=== PATIENT | male | born 1975 | race Caucasian/White ===

== ENCOUNTER 2019-10-28 10:36 | Emergency (ER) | payer MEDICAID ==
[2019-10-28] MEDS ORDERED: Acetaminophen/oxyCODONE 325-5 MG Tab PO ONE (11:23)
[2019-10-28] MEDS ORDERED: Ibuprofen 400 MG Tab PO ONE (11:23)
[2019-10-28] MEDS ORDERED: Lidocaine 5% 700 MG Patch TOP ONE (11:23)
--- NOTE | 2019-10-28 11:27 | EDM.PDOC ---
ED HPI GENERAL MEDICAL PROBLEM - General Chief Complaint: Back Pain or Injury Stated Complaint: PAIN ON SIDE/BACK Time Seen by Provider: 10/28/19 10:38 Source of Information: Reports: Patient History Limitations: Reports: No Limitations - History of Present Illness INITIAL COMMENTS - FREE TEXT/NARRATIVE: 44-year-old male with a past medical history of anxiety presenting with chest wall pain. 6 days ago, the patient was crawling through a drainage pipe when he stood up and struck the left side of his thorax against an approximately 2 inch wide metal pipe. Since then he has had persistent pain to the left lateral chest wall and noted a contusion to the same area. His left-sided chest pain worsens with movement and with deep breathing. He denies any hematuria, nausea, vomiting, chest discomfort, or shortness of breath. Intermittently taking ibuprofen at home without much relief. No other complaints or injuries. No anticoagulation. left lower back/side Pain Score (Numeric/FACES): 9 - Related Data Allergies Allergy/AdvReac Type Severity Reaction Status Date / Time No Known Allergies Allergy Verified 10/28/19 10:58 Home Meds: Home Meds ClonazePAM [KlonoPIN] mg PO ASDIRECTED 10/28/19 [History] Escitalopram [Lexapro] 20 mg PO DAILY 10/28/19 [History] Past Medical History Psychiatric History: Reports: Anxiety - Infectious Disease History Infectious Disease History: Reports: Chicken Pox Social & Family History - Family History Family Medical History: Noncontributory - Tobacco Use Smoking Status *Q: Never Smoker - Caffeine Use Caffeine Use: Reports: Soda - Recreational Drug Use Recreational Drug Use: No ED ROS GENERAL - Review of Systems Review Of Systems: See Below Constitutional: Denies: Fever HEENT: Reports: No Symptoms Respiratory: Denies: Shortness of Breath Cardiovascular: Reports: Chest Pain (Left-sided chest wall pain) Endocrine: Reports: No Symptoms GI/Abdominal: Denies: Abdominal Pain : Denies: Hematuria Musculoskeletal: Denies: Neck Pain Skin: Reports: Other (Contusion) Neurological: Denies: Headache Psychiatric: Reports: No Symptoms Hematologic/Lymphatic: Reports: No Symptoms ED EXAM, UPPER BACK/NECK PAIN - Physical Exam Exam: See Below Text/Narrative:: Vital signs reviewed. Nursing notes reviewed. Constitutional: Awake, alert, non-distressed. Head: Normocephalic, atraumatic. Eyes: EOMI, conjunctiva normal, no discharge, no scleral icterus. Ears, Nose, Throat: External ears and nose normal, moist oral mucosa. Cardiovascular: 2+ radial pulse, capillary refill less than 2 seconds. Chest: Contusion noted the left lateral chest wall with marketed tenderness to the same area, no crepitus or paradoxical breathing Pulmonary: normal work of breathing, no accessory muscle use. Abdomen/GI: Soft, nontender, nondistended, no guarding or rigidity, no masses. Musculoskeletal: No deformities. Integumentary: Appropriate color for ethnicity, warm, dry, no pallor or jaundice, no rash. Neurologic: Alert, answering questions appropriately, normal speech, no facial droop, moving all extremities well. Psychiatric: Appropriate mood and affect, normal thought process. Course - Vital Signs Text/Narrative:: 44-year-old male with left lateral chest pain after blunt trauma. Patient hemodynamically stable, afebrile, well-appearing, looks nontoxic. Differential diagnosis includes but is not limited to: Contusion, rib contusion, rib fracture, chest wall pain, pneumothorax, muscle strain, etc. No crepitus on exam. Small contusion noted. Two-view chest x-ray series is negative. Suspect rib contusion/chest wall contusion. No abdominal pain, pain is isolated to the left chest wall. Low suspicion for rib fracture. Treatment is symptomatic regardless. Plan: Patient is stable to discharge home with outpatient primary care follow- up. Plan for lidocaine patches, extra strength acetaminophen, ibuprofen, heating pad. Strict emergency department return precautions were provided, patient indicated understanding. All questions were answered prior to departure. Discharged in good condition. Last Recorded V/S: Last Vital Signs Temp 36.4 C 10/28/19 11:03 Pulse 70 10/28/19 11:03 Resp 16 10/28/19 11:03 BP 124/74 10/28/19 11:03 Pulse Ox 96 10/28/19 11:03 - Orders/Labs/Meds Meds: Medications Discontinued Medications Generic Name Dose Route Start Last Admin Trade Name Freq PRN Reason Stop Dose Admin Ibuprofen 400 mg 10/28/19 11:23 10/28/19 11:27 Motrin PO 10/28/19 11:24 400 mg ONETIME ONE Administration Lidocaine 700 mg 10/28/19 11:23 10/28/19 11:28 Lidoderm 5% TOP 10/28/19 11:24 700 mg ONETIME ONE Administration Oxycodone/Acetaminophen 2 tab 10/28/19 11:23 10/28/19 11:28 Percocet 325-5 Mg PO 10/28/19 11:24 2 tab ONETIME ONE Administration Departure - Departure Time of Disposition: 12:40 Disposition: Home, Self-Care 01 Condition: Good Clinical Impression: Contusion of rib on left side Qualifiers: Encounter type: initial encounter Qualified Code(s): S20.212A - Contusion of left front wall of thorax, initial encounter - Discharge Information *PRESCRIPTION DRUG MONITORING PROGRAM REVIEWED*: Not Applicable *COPY OF PRESCRIPTION DRUG MONITORING REPORT IN PATIENT KORY: Not Applicable Instructions: Rib Contusion, Blunt Chest Trauma Referrals: [facility] - [facility] Practice [Provider Group] - 1 Week (For follow-up of pain/contusions.) Forms: ED Department Discharge Additional Instructions: Thank you for choosing the [facility] emergency department in [place] for your medical needs today. It was a pleasure caring for you. You were seen in the emergency department for injuries to the left side of your chest. X-rays were normal. I suspect that you have contusions, or bruises, of the ribs of the left side of your chest and your left chest wall. Treatment is with [id number] extra strength acetaminophen and ibuprofen along with lidocaine patches and heating pad. I recommend [id number] extra strength acetaminophen (1000 mg every 6 hours) and ibuprofen (400 mg every 6 hours) to help treat your pain. Please return the emergency department immediately if your symptoms worsen or if you feel worse. The following information is given to patients seen in the emergency department who are being discharged. This information is to outline your options for follow-up care. We provide all patients seen in our emergency department with a follow-up referral. The need for follow-up, as well as the timing and circumstances, are variable depending upon the specifics of your emergency department visit. If you don't have a primary care physician on staff, we will provide you with a referral. We always advise you to contact your personal physician following an emergency department visit to inform them of the circumstance of the visit and for follow-up with them and/or the need for any referrals to a consulting specialist. The emergency department will also refer you to a specialist when appropriate. This referral assures that you have the opportunity for follow-up care with a specialist. All of these measure are taken in an effort to provide you with optimal care, which includes your follow-up. Under all circumstances we always encourage you to contact your private physician who remains a resource for coordinating your care. When calling for follow-up care, please make the office aware that this follow-up is from your recent emergency room visit. If for any reason you are refused follow-up, please contact the [facility] Emergency Department at and asked to speak to the emergency department charge nurse. If you do not have a primary care physician that is caring for you, you can contact these clinics below to set up an appointment to establish care: [facility] - Primary Care [address] [place] [id number] [address] Sepsis Event Note (ED) - Evaluation Sepsis Screening Result: No Definite Risk - Focused Exam Vital Signs: Vital Signs Temp Pulse Resp BP Pulse Ox 10/28/19 11:03 36.4 C 70 16 124/74 96
--- NOTE | 2019-10-28 12:31 | CR ---
Chest: 2 views of the chest were obtained. Comparison: No prior chest imaging is available. Heart size and mediastinum are normal. Lungs are clear with no acute parenchymal change. Bony structures are unremarkable. Impression: 1. Nothing acute is appreciated on 2 view chest x-ray. Diagnostic code #1 This report was dictated in MDT
== END 2019-10-28 12:51 | disposition home or self-care (01) ==
LOC: MW.ED 10:36
DX: S20.212A Contusion of left front wall of thorax, initial encounter (principal); F41.9 Anxiety disorder, unspecified; Z79.899 Other long term (current) drug therapy; W22.8XXA Striking against or struck by other objects, initial encounter
CPT/HCPCS: 71046; 99283; A9270

== ENCOUNTER 2021-09-12 12:50 | Emergency (ER) | payer SELFPAY ==
[2021-09-12] MEDS ORDERED: Clindamycin HCl 150 MG Cap PO STA ×3 (14:06→14:09)
[2021-09-12] MEDS ORDERED: Acetaminophen/oxyCODONE 325-10 MG Tab PO STA (14:09)
== END 2021-09-12 14:25 | disposition home or self-care (01) ==
LOC: MW.ED 12:50
DX: K04.7 Periapical abscess without sinus (principal); J32.0 Chronic maxillary sinusitis; Z86.16 Personal history of COVID-19
CPT/HCPCS: 99282; A9270; 99283